=== PATIENT | male | born 1975 | race African-American/Black ===

== ENCOUNTER 2024-09-15 22:31 | Emergency (ER) | payer OTHER ==
[~2024-09-15] VITALS: Ht 172.7 cm; Wt 82.0 kg
[2024-09-15 22:42] VITALS: BP 112/80; PULSE 85; RESP 16; O2SAT 100
[2024-09-15 23:45] VITALS: TEMP 98.6
[2024-09-15] MEDS: ACETAMINOPHEN 325MG TABLET PO ONE (23:45)
== END 2024-09-16 03:13 | disposition home or self-care (01) ==
LOC: ER 22:39
DX: S09.90XA Unspecified injury of head, initial encounter (principal); M79.646 Pain in unspecified finger(s); Y04.0XXA Assault by unarmed brawl or fight, initial encounter; Y93.89 Activity, other specified; Y92.89 Other specified places as the place of occurrence of the external cause; Y99.8 Other external cause status
CPT/HCPCS: 12011; 73130; 99284